=== PATIENT | female | born 1990 | race Two or more races ===

== ENCOUNTER 2017-04-14 13:13 | Emergency (ER) | payer MEDICAID ==
[2017-04-14 13:25] VITALS: BP 121/73; PULSE 100; TEMP 98.1; O2SAT 100
--- NOTE | 2017-04-14 14:34 | C.PDOC ---
History Of Present Illness 26F brought in for behavior problem- mom says today she got in a argument with her and she was "screaming and kicking" and made a comment that she wanted to harm her. her mom says this has happened before but not for awhile and she feels it is due to a recent increase in her odse of prozac. the pts mom does not feel she is an any danger of harm by her daughter. the patient denies any suicidal or homicidal ideation. Time Seen by Provider: 04/14/17 14:06 Chief Complaint (Nursing): Psychiatric Evaluation Past Medical History Vital Signs: Last Vital Signs Temp 98.1 F 04/14/17 13:21 Pulse 100 H 04/14/17 13:21 Resp 18 04/14/17 13:21 BP 121/73 04/14/17 13:21 Pulse Ox 100 04/14/17 14:36 - Medical History PMH: Diabetes, Seizures Denies: Hepatitis, HIV, HTN, Sexually Transmitted Disease Family History: States: Other Other Family History: nc - Social History Hx Tobacco Use: No Hx Alcohol Use: No Hx Substance Use: No - Immunization History Hx Tetanus Toxoid Vaccination: Yes Hx Influenza Vaccination: Yes Review Of Systems Constitutional: Negative for: Fever Cardiovascular: Negative for: Chest Pain Gastrointestinal: Negative for: Vomiting Psych: Negative for: Suicidal ideation Physical Exam - Physical Exam Appears: Well, Non-toxic, No Acute Distress Skin: Warm, Dry Head: Atraumatic Eye(s): bilateral: PERRL Cardiovascular: Rhythm Regular Respiratory: No Decreased Breath Sounds, No Accessory Muscle Use Neurological/Psych: Oriented x3, Other (no focal deficits) Gait: Steady ED Course And Treatment O2 Sat by Pulse Oximetry: 100 Medical Decision Making Medical Decision Making: 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 the mother wishes to take the patient home and will f/u w her physician. Disposition - Disposition Disposition: HOME/ ROUTINE Disposition Time: 14:31 Condition: STABLE Additional Instructions: Please follow up with your doctor. Return to the ER for any worsening symptoms or for any other concerns. Forms: [employer] (Maltese) - Clinical Impression Clinical Impression: Behavioral problem
[2017-04-14 15:06] VITALS: RESP 20
== END 2017-04-14 15:05 | disposition home or self-care (01) ==
LOC: C.ER 13:13
DX: F69 Unspecified disorder of adult personality and behavior (principal)

== ENCOUNTER 2018-08-21 13:29 | Emergency (ER) | payer MEDICAID ==
[2018-08-21 13:43] VITALS: RESP 18
--- NOTE | 2018-08-21 14:23 | RAD ---
Date of service: 08/21/2018 PROCEDURE: CHEST RADIOGRAPH, 1 VIEW HISTORY: Seizure COMPARISON: 10/30/2012 FINDINGS: LUNGS: Clear. PLEURA: No pneumothorax or pleural fluid seen. CARDIOVASCULAR: No aortic atherosclerotic calcification present. Normal. OSSEOUS STRUCTURES: No significant abnormalities. VISUALIZED UPPER ABDOMEN: Distended stomach and visible colon. OTHER FINDINGS: None. IMPRESSION: No active disease.No significant interval change compared to the prior examination(s).
[2018-08-21 14:31] LABS: BASO % 0.4 % (0.0-2.0); EOS # 0.2 K/uL (0.0-0.7); EOS % 3.2 % (0.0-4.0); HEMOGLOBIN 12.7 g/dL (11.0-16.0); LYMPH # 1.7 K/uL (1.0-4.3); LYMPH % 23.3 % (20.0-40.0); MEAN CORPUSCULAR HEMOGLOBIN 29.8 pg (27.0-31.0); MEAN CORPUSCULAR HGB CONC 33.6 g/dL (33.0-37.0); MEAN PLATELET VOLUME 9.6 fL (7.2-11.7); MONO # 0.6 K/uL (0.0-0.8); MONO % 7.9 % (0.0-10.0); NEUT # 4.7 K/uL (1.8-7.0); NEUT % 65.2 % (50.0-75.0); NRBC % 0.1 % (0.0-2.0); RBC 4.27 Mil/uL (3.80-5.20); WHITE BLOOD COUNT 7.2 K/uL (4.8-10.8)
[2018-08-21 14:36] LABS: MEAN CELL VOLUME 88.8 fL (81.0-99.0)
[2018-08-21 14:41] LABS: ALB/GLOB RATIO 1.9 (1.0-2.1); ALT/SGPT 18 U/L (9-52); AST/SGOT 21 U/L (14-36); BLOOD UREA NITROGEN 12 mg/dL (7-17); CALCIUM 9.8 mg/dl (8.6-10.4); GFR NON-AFRICAN AMERICAN > 60
[2018-08-21 15:11] VITALS: BP 125/70; PULSE 84; TEMP 98.2
[2018-08-21 15:37] VITALS: O2SAT 98
--- NOTE | 2018-08-21 15:37 | C.PDOC ---
History Of Present Illness 27 y/o female,w/PMhx of seizures and autism, brought to ER by ambulance for evaluation of tonic-clonic seizure which occurred while patient was in school today.Patient states that she did not take seizure medications in the morning t morteza for unknown reason. As per EMS, patient was post-ictal. Denies having CP,SOB, nausea, and vomiting. Currently, patient is back to baseline mental status in ER. Time Seen by Provider: 08/21/18 13:52 Chief Complaint (Nursing): Seizure History Per: Patient, EMS History/Exam Limitations: no limitations Severity: Moderate Past Medical History Reviewed: Historical Data, Nursing Documentation, Vital Signs Vital Signs: Last Vital Signs Temp 98.0 F 08/21/18 13:38 Pulse 94 H 08/21/18 13:38 Resp 18 08/21/18 13:38 BP 123/74 08/21/18 13:38 Pulse Ox 98 08/21/18 13:38 Primary Care Provider: FAMILY PROVIDER,NO - Medical History PMH: Diabetes, Seizures Denies: Hepatitis, HIV, HTN, Sexually Transmitted Disease Surgical History: No Surg Hx Family History: States: No Known Family Hx - Social History Hx Tobacco Use: No Hx Alcohol Use: No Hx Substance Use: No - Immunization History Hx Tetanus Toxoid Vaccination: Yes Hx Influenza Vaccination: Yes Review Of Systems Except As Marked, All Systems Reviewed And Found Negative. Constitutional: Negative for: Fever, Chills Gastrointestinal: Negative for: Nausea, Vomiting, Abdominal Pain Neurological: Positive for: Seizures Physical Exam - Physical Exam Appears: Non-toxic, No Acute Distress Skin: Normal Color, Warm, Dry Head: Atraumatic, Normacephalic Eye(s): bilateral: Normal Inspection Nose: Normal Oral Mucosa: Moist Neck: Supple Chest: Symmetrical Cardiovascular: Rhythm Regular Respiratory: Normal Breath Sounds, No Rales, No Rhonchi, No Wheezing Gastrointestinal/Abdominal: Normal Exam, Soft, No Tenderness, No Guarding, No Rebound Neurological/Psych: Oriented x3, Normal Speech ED Course And Treatment - Laboratory Results Result Diagrams: 08/21/18 14:20 08/21/18 14:20 O2 Sat by Pulse Oximetry: 98 (RA) Pulse Ox Interpretation: Normal Medical Decision Making Medical Decision Making: has not taken seizure meds this AM taken in ED normal workup pt back to baseline mom wants to take home now Disposition Doctor Will See Patient In The: Office Counseled Patient/Family Regarding: Studies Performed, Diagnosis - Disposition Referrals: [facility] [Outside] [facility] [Outside] [facility] [Outside] [facility] [Outside] Disposition: HOME/ ROUTINE Disposition Time: 15:37 Condition: GOOD Additional Instructions: please take anti-seizure meds regularly and as scheduled outpatient follow-up as normal Instructions: Seizures, Adult (DC) Forms: [employer] (Georgian) - Clinical Impression Clinical Impression: Tonic-clonic seizure - Scribe Statement The provider has reviewed the documentation as recorded by the Scribe Angelica Centeno Provider Attestation: All medical record entries made by the Scribe were at my direction and personally dictated by me. I have reviewed the chart and agree that the record accurately reflects my personal performance of the history, physical exam, medical decision making, and the department course for this patient. I have also personally directed, reviewed, and agree with the discharge instructions and disposition.
== END 2018-08-21 15:53 | disposition home or self-care (01) ==
LOC: C.ER 13:29
DX: G40.409 Other generalized epilepsy and epileptic syndromes, not intractable, without status epilepticus (principal)